=== PATIENT | female | born 1985 | race Caucasian/White ===

== ENCOUNTER 2024-05-14 15:33 | Inpatient (IN) ==
[2024-05-14] MEDS ORDERED: DEXTROSE 50% 50 ML VIAL IV PRN (16:03)
[2024-05-14] MEDS ORDERED: DEXTROSE 31 GM ORAL.SUSP PO PRN (16:03)
[2024-05-14 16:45] LABS: Erythrocyte Sedimentation Rate 2 mm/hr (0-20)
[2024-05-14 16:47] LABS: Basophils % (Auto) 0.7 % (0.0-2.0); Eosinophils # (Auto) 0.12 K/mcL (0.00-0.70); Eosinophils % (Auto) 0.9 % (0.0-7.0); Hematocrit 40.7 % (34.1-44.9); Hemoglobin 13.6 g/dL (11.2-15.7); Lymphocytes # (Auto) 3.06 K/mcL (1.50-4.80); Lymphocytes % (Auto) 22.2 % (15.5-49.0); Mean Cell Volume 85.7 fL (80.0-100.0); Mean Corpuscular HGB Conc 33.4 g/dL (31.0-36.0); Mean Platelet Volume 10.2 fL (8.8-12.5); Monocytes # (Auto) 0.59 K/mcL (0.10-0.90); Monocytes % (Auto) 4.3 % (1.0-12.0); Neutrophils % (Auto) 71.7 % (38.0-78.0); Platelet Count 366 K/mcL (140-440); RBC 4.75 M/mcL (3.59-5.38); Red Cell Distribution Width 13.1 % (11.5-14.5); WBC 13.8 K/mcL (4.5-11.0)
[2024-05-14 17:09] LABS: ALT/SGPT 10 U/L (<40); AST/SGOT 12 U/L (<32); Albumin 4.3 gm/dL (3.2-5.2); Albumin/Globulin Ratio 1.4 (1.0-2.3); Alkaline Phosphatase 57 U/L (39-117); Bilirubin,Direct 0.3 mg/dL (<0.3); Bilirubin,Total 0.6 mg/dL (0.1-1.0); Blood Urea Nitrogen 13 mg/dL (6-20); Calcium 9.6 mg/dL (8.6-10.4); Carbon Dioxide 22 mmol/L (22-30); Chloride 100 mmol/L (96-108); Glomerular Filtration Rate 80; Glucose 86 mg/dL (70-105); Lactate Dehydrogenase 111 U/L (135-225); Phosphorous 3.1 mg/dL (2.5-4.5); Potassium 3.7 mmol/L (3.3-5.1); Sodium 136 mmol/L (133-145); Triglycerides 126 mg/dL (<150); Uric Acid 7.6 mg/dL (2.5-8.0)
[2024-05-14] MEDS: 0.9 % SODIUM CHLORIDE 1,000 ML IV SCH (17:39)
[2024-05-14] MEDS: CEFEPIME 1 GM VIAL IV SCH (17:39)
[2024-05-14] MEDS: ONDANSETRON 4 MG/2 ML VIAL IV PRN (18:02)
[2024-05-14] MEDS: HYDROmorphone 0.5 MG/0.5 ML SYRINGE IV PRN (18:02)
[2024-05-14] MEDS: INSULIN LISPRO 1 UNIT/0.01 ML UNIT SQ SCH (18:49)
[2024-05-14 19:02] LABS: HCG,Serum Negative
[2024-05-14] MEDS: VENLAFAXINE 75 MG CAP.XL.24H PO SCH (20:21)
[2024-05-14] MEDS: SENNOSIDES 1 TABLET PO SCH (20:23)
[2024-05-14] MEDS: DOCUSATE SODIUM 100 MG CAPSULE PO SCH (20:24)
[2024-05-14] MEDS: 0.9 % SODIUM CHLORIDE 10 ML SYRINGE IV SCH (20:24)
[2024-05-14] MEDS: LITHIUM 300 MG PO SCH (20:24)
[2024-05-15] MEDS ORDERED: KETAMINE 50 MG/ML Syringe IV ONE (08:07)
[2024-05-15] MEDS ORDERED: ONDANSETRON 4 MG/2 ML VIAL ONE (08:08)
[2024-05-15] MEDS ORDERED: ROCURONIUM 10 MG/ML ML IV ONE (08:08)
[2024-05-15] MEDS ORDERED: MIDAZOLAM 2 MG/2 ML VIAL ONE (08:08)
[2024-05-15] MEDS ORDERED: LIDOCAINE 2% PF 5 ML VIAL ONE (08:08)
[2024-05-15] MEDS ORDERED: DEXAMETHASONE 10 MG/ML VIAL ONE (08:08)
[2024-05-15] MEDS ORDERED: PROPOFOL 200 MG/20 ML VIAL IV ONE (08:08)
[2024-05-15] MEDS ORDERED: GLYCOPYRROLATE 0.2 MG/ML VIAL IV ONE (08:08)
[2024-05-15] MEDS ORDERED: fentaNYL 100 MCG/2 ML VIAL ONE (08:08)
[2024-05-15] MEDS ORDERED: SUCCINYLCHOLINE 200 MG/10 ML VIAL IV ONE (08:09)
[2024-05-15] MEDS ORDERED: MAGNESIUM SULFATE 2 GM/50 ML BAG IV ONE (08:14)
[2024-05-15] MEDS ORDERED: HYDROmorphone 0.5 MG/0.5 ML SYRINGE ONE ×2 (08:38→11:05)
[2024-05-15] MEDS ORDERED: ONDANSETRON 4 MG/2 ML VIAL IV PRN (10:35)
[2024-05-15] MEDS ORDERED: FLUMAZENIL 0.1 MG/ML ML IV PRN (10:35)
[2024-05-15] MEDS ORDERED: BENZOCAINE/MENTHOL 1 LOZENGE PO PRN (10:35)
[2024-05-15] MEDS ORDERED: IPRATROPIUM/ALBUTEROL 3 ML AMPUL.NEB NEB PRN (10:35)
[2024-05-15] MEDS ORDERED: NALOXONE HCL 0.4 MG/ML VIAL IV PRN (10:35)
[2024-05-15] MEDS ORDERED: METHOCARBAMOL 1,000 MG/10 ML VIAL IV PRN (10:35)
[2024-05-15] MEDS ORDERED: HYDROmorphone 0.5 MG/0.5 ML SYRINGE IV PRN (10:35)
[2024-05-15] MEDS ORDERED: fentaNYL 100 MCG/2 ML VIAL IV PRN (10:35)
[2024-05-15] MEDS ORDERED: LACTATED RINGERS 250 ML IV PRN (10:35)
[2024-05-15] MEDS ORDERED: SUGAMMADEX SODIUM 200 MG/2 ML VIAL IV ONE (10:59)
[2024-05-15] MEDS: ACETAMINOPHEN 1,000 MG/100 ML BAG IV ONE (11:22)
[2024-05-15] MEDS: LACTATED RINGERS 1,000 ML IV SCH (12:18)
[2024-05-15] MEDS: oxyCODONE IR 5 MG TABLET PO PRN (16:56)
[2024-05-16] MEDS: DEXTROSE 50% 50 ML SYRINGE IV PRN (10:07)
[2024-05-16] MEDS: SUCRALFATE 1 GM/10 ML ORAL.SUSP PO SCH (11:42)
[2024-05-16] MEDS: PANTOPRAZOLE 40 MG VIAL IV SCH (11:47)
[2024-05-16] MEDS ORDERED: hydrALAZINE 20 MG/ML VIAL IV PRN (22:51)
[2024-05-16] MEDS: hydrALAZINE 20 MG/ML VIAL IV ONE (23:05)
[2024-05-16] MEDS: hydrALAZINE 20 MG/ML VIAL ONE (23:39)
[2024-05-17] MEDS ORDERED: IOPAMIDOL 100 ML BOTTLE IV ONE (07:21)
[2024-05-17 07:26] LABS: Basophils # (Auto) 0.04 K/mcL (0.00-0.30); Basophils % (Auto) 0.4 % (0.0-2.0); Eosinophils # (Auto) 0.12 K/mcL (0.00-0.70); Eosinophils % (Auto) 1.3 % (0.0-7.0); Hematocrit 36.5 % (34.1-44.9); Hemoglobin 12.1 g/dL (11.2-15.7); Lymphocytes # (Auto) 3.16 K/mcL (1.50-4.80); Lymphocytes % (Auto) 35.3 % (15.5-49.0); Mean Cell Volume 85.7 fL (80.0-100.0); Mean Corpuscular HGB Conc 33.2 g/dL (31.0-36.0); Mean Platelet Volume 10.4 fL (8.8-12.5); Monocytes # (Auto) 0.49 K/mcL (0.10-0.90); Monocytes % (Auto) 5.5 % (1.0-12.0); Neutrophils % (Auto) 57.3 % (38.0-78.0); Platelet Count 301 K/mcL (140-440); RBC 4.26 M/mcL (3.59-5.38); Red Cell Distribution Width 13.5 % (11.5-14.5)
[2024-05-17 07:44] LABS: ALT/SGPT 40 U/L (<40); AST/SGOT 23 U/L (<32); Albumin 3.4 gm/dL (3.2-5.2); Albumin/Globulin Ratio 1.6 (1.0-2.3); Alkaline Phosphatase 50 U/L (39-117); Bilirubin,Direct 0.2 mg/dL (<0.3); Bilirubin,Total 0.4 mg/dL (0.1-1.0); Blood Urea Nitrogen 6 mg/dL (6-20); Calcium 8.8 mg/dL (8.6-10.4); Carbon Dioxide 25 mmol/L (22-30); Chloride 109 mmol/L (96-108); Globulin 2.1 gm/dL (2.2-3.7); Glomerular Filtration Rate 115; Glucose 87 mg/dL (70-105); Lactate Dehydrogenase 90 U/L (135-225); Potassium 3.6 mmol/L (3.3-5.1); Sodium 140 mmol/L (133-145); Triglycerides 150 mg/dL (<150); Uric Acid 5.5 mg/dL (2.5-8.0)
[2024-05-17] MEDS: DEXTROSE 5%-NS 1,000 ML IV SCH (11:09)
[2024-05-17] MEDS: DEXTROSE 5%-1/2NS 1,000 ML IV SCH (11:13)
[2024-05-17] MEDS: METOCLOPRAMIDE 10 MG/2 ML VIAL IV SCH (12:05)
[2024-05-17] MEDS ORDERED: PROPOFOL 200 MG/20 ML VIAL IV ONE (12:49)
[2024-05-17] MEDS ORDERED: MIDAZOLAM 2 MG/2 ML VIAL ONE (12:49)
[2024-05-17] MEDS ORDERED: KETAMINE 50 MG/ML Syringe IV ONE (12:49)
[2024-05-17] MEDS: METOCLOPRAMIDE 10 MG TABLET PO SCH (14:16)
[2024-05-17 19:01] VITALS: TEMP 98.4; O2SAT 100
== END 2024-05-17 19:03 | disposition home or self-care (01) | DRG 418 ==
LOC: MEDSUR
PROVIDERS: ADMIT Family Medicine Adult Medicine; ATTEND Family Medicine Adult Medicine